=== PATIENT | female | born 1950 | race Caucasian/White ===

== ENCOUNTER 2023-10-07 07:22 | Emergency (ER) | payer MEDICARE ==
[~2023-10-07] VITALS: Ht 154.9 cm; Wt 70.4 kg
[~2023-10-07 07:22] MED LIST: ASPIR 8181 MG PO; CYMBALTA30 MG PO; FERROUS SULFAT325 M1 PO; GABAPENTIN300 MG PO; HYDROCHLOROTH12.5 M1 PO; HYDROCODON-ACE1 EAC9 PO; KLOR-CON M1010 MEQ PO; LEVEMIR100 UNIT/1 SQ; LEVOTHYROXINE112 MCG PO; LORATADINE10 MG PO; LORAZEPAM0.5 MG PO; LOSARTAN POTAS100 MG PO; LOVASTATIN20 MG PO; NOVOLOG100 UNITS1 SQ; TIZANIDINE HCL4 MG PO; VITAMIN B-121000 MC2 PO
[2023-10-07 07:39] VITALS: TEMP 97.6
[2023-10-07] MEDS ORDERED: areds PO (08:33)
[2023-10-07] MEDS ORDERED: GLIMEPIRIDE4 MG (08:33)
[2023-10-07] MEDS ORDERED: PROPRANOLOL HCL10 MG PO (08:33)
[2023-10-07] MEDS ORDERED: CETIRIZINE HCL10 MG (08:33)
[2023-10-07] MEDS ORDERED: zinc PO (08:33)
[2023-10-07] MEDS ORDERED: CENTRUM ADULTS1 EACH PO (08:33)
[2023-10-07] MEDS ORDERED: MAGNESIUM OXID400 MG PO (08:33)
[2023-10-07] MEDS ORDERED: HAIR, SKIN AND1 EAC1 PO (08:33)
[2023-10-07] MEDS ORDERED: HUMALOG MI100 UNIT/2 SQ (08:33)
[2023-10-07] MEDS ORDERED: tumeric/curcumin PO (08:33)
[2023-10-07] MEDS ORDERED: ABILIFY5 MG PO (08:33)
[2023-10-07] MEDS ORDERED: LANTUS 3ML100 UNITS/ SQ (08:33)
[2023-10-07] MEDS ORDERED: LASIX20 MG PO (08:33)
[2023-10-07] MEDS ORDERED: OS-CAL 500+D T1 EACH PO (08:33)
[2023-10-07] MEDS ORDERED: RESTASIS MULTI5.5 ML (08:33)
[2023-10-07] MEDS ORDERED: FARXIGA10 MG (08:33)
[2023-10-07] MEDS ORDERED: ROSUVASTATIN CAL5 MG (08:33)
[2023-10-07] MEDS ORDERED: BACLOFEN10 MG PO (08:33)
[2023-10-07] MEDS ORDERED: BUPROPION HCL150 M2 PO (08:33)
[2023-10-07] MEDS ORDERED: LEVOTHYROXINE88 MCG PO (08:33)
[2023-10-07] MEDS ORDERED: DOXEPIN HCL25 MG PO (08:33)
[2023-10-07] MEDS: ACETAMINOPHEN 325 MG TAB PO ONE (09:04)
[2023-10-07 09:06] VITALS: PULSE 69; RESP 13; O2SAT 100
== END 2023-10-07 09:11 | disposition home or self-care (01) ==
LOC: FSED 07:28
DX: S00.83XA Contusion of other part of head, initial encounter (principal); R51.9 Headache, unspecified; M54.2 Cervicalgia; S40.011A Contusion of right shoulder, initial encounter; W01.198A Fall on same level from slipping, tripping and stumbling with subsequent striking against other object, initial encounter; Y92.89 Other specified places as the place of occurrence of the external cause
CPT/HCPCS: 70450; 72125; 99284